=== PATIENT | female | born 1955 | race Caucasian/White ===

== ENCOUNTER 2016-07-23 10:06 | Emergency (ER) | payer BC ==
[2016-07-23 11:50] VITALS: BP 106/69
--- NOTE | 2016-07-23 12:11 | UC ---
Complaint Female HPI - HPI Summary HPI Summary: urinary burning and frequency x 1 day no fever, no chills, no flank pain + bilateral plugged ears , - History Of Current Complaint Chief Complaint: UCGU Stated Complaint: URINARY COMPLAINT Time Seen by Provider: 07/23/16 11:19 Hx Obtained From: Patient Onset/Duration: Gradual Onset, Lasting Days - 1, Still Present Timing: Constant, Lasting Days - 1 Severity Initially: Moderate Severity Currently: Moderate Character: Burning Aggravating Factor(s): Urination Alleviating Factor(s): Nothing Associated Signs And Symptoms: Negative: Negative, Fever, Back Pain, Vaginal Bleeding/Discharge, Vaginal Discharge, Nausea, Vomiting(# Of Episodes =), Genital Swelling, Genital Blisters, Retained Foregin Body (Specify) - Allergies/Home Medications Allergies/Adverse Reactions: Allergies Allergy/AdvReac Type Severity Reaction Status Date / Time CAT SCAN DYE Allergy DIZZINESS, Uncoded 07/23/16 11:30 REDNESS PMH/Surg Hx/FS Hx/Imm Hx Previously Healthy: Yes - Surgical History Surgical History: Yes Surgery Procedure, Year, and Place: BLADDER REPAIR 24 YRS AGO - Family History Known Family History: Negative: Diabetes - Social History Alcohol Use: Rare Alcohol Amount: 3-4 PER MONTH Substance Use Type: None Smoking Status (MU): Light Every Day Tobacco Smoker Amount Used/How Often: PACK Q 3 DAYS Have You Smoked in the Last Year: Yes - Immunization History Most Recent Influenza Vaccination: NONE 2015/2016 Most Recent Tetanus Shot: UTD Most Recent Pneumonia Vaccination: NONE Review of Systems Constitutional: Negative Skin: Negative Eyes: Negative Respiratory: Negative Cardiovascular: Negative Genitourinary: Dysuria, Frequency All Other Systems Reviewed And Are Negative: Yes Physical Exam Triage Information Reviewed: Yes Appearance: Well-Appearing, No Pain Distress, Well-Nourished Vital Signs: Initial Vital Signs Temp 99 F 07/23/16 11:31 Pulse 67 07/23/16 11:31 Resp 16 07/23/16 11:31 BP 106/69 07/23/16 11:31 Pulse Ox 98 07/23/16 11:31 Vital Signs Reviewed: Yes Eye Exam: Normal Eyes: Positive: Conjunctiva Clear ENT: Positive: Normal ENT inspection, Hearing grossly normal, Pharynx normal, Other: - bilateral cerumen impaction. Negative: Nasal congestion, Nasal drainage Neck exam: Normal Neck: Positive: Supple, Nontender, No Lymphadenopathy Respiratory: Positive: Chest non-tender, Lungs clear, Normal breath sounds Cardiovascular: Positive: RRR, No Murmur, Pulses Normal Abdominal Exam: Normal Abdomen Description: Positive: Nontender, Soft. Negative: CVA Tenderness (R), CVA Tenderness (L), Distended, Guarding Bowel Sounds: Positive: Present Skin Exam: Normal Complaint Female Dx - Differential Dx/Diagnosis Provider Diagnoses: uti. cerumen impaction Discharge - Discharge Plan Condition: Stable Disposition: HOME Prescriptions: Sulfamethox/Trimethoprim DS* [Bactrim DS 800/160 TAB*] 1 tab PO BID #14 tab Patient Education Materials: Urinary Tract Infection in Women (ED) Referrals: Rome Banks MD [Primary Care Provider] - 7 Days
== END 2016-07-23 12:21 | disposition home or self-care (01) ==
LOC: UCCORT 10:06
DX: Z72.0 Tobacco use (principal); N39.0 Urinary tract infection, site not specified; H61.20 Impacted cerumen, unspecified ear
CPT/HCPCS: 81003; 87086; 99213; G0463

== ENCOUNTER 2019-02-15 10:56 | Emergency (ER) | payer BC ==
[2019-02-15 11:33] VITALS: BP 132/80
--- NOTE | 2019-02-15 12:42 | UC ---
Back Pain HPI - HPI Summary HPI Summary: Pt presents with c/o low back pain that radiates across low back and is worse on right side. Pt states that she fell on 02/09/19 from standing height unto pavement. Pt states she has been taking ibuprofen every 2 hours with no improvement of pain. - History of Current Complaint Chief Complaint: UCBackPain Stated Complaint: SP FALL-BACK PAIN Time Seen by Provider: 02/15/19 11:58 Hx Obtained From: Patient ?: No Onset/Duration: Sudden Onset, Lasting Days, Still Present Timing: Constant Severity Initially: Moderate Severity Currently: Moderate Pain Intensity: 8 Back Pain: Is Discrete @ - low back, Radiates To - right hip side of back Character: Dull, Aching, Stiffness Aggravating Factor(s): Movement, Lifting, Bending, Walking Alleviating Factor(s): Rest, Position Associated Signs And Symptoms: Positive: Negative - Risk Factors AAA Risk Factors: Negative TAD Risk Factors: Negative Cauda Equina Risk Factors: Negative Epidural Abscess Risk Factors: Negative - Allergies/Home Medications Allergies/Adverse Reactions: Allergies Allergy/AdvReac Type Severity Reaction Status Date / Time CAT SCAN DYE Allergy DIZZINESS, Uncoded 02/15/19 11:29 REDNESS Home Medications: Home Medications Ibuprofen TAB* [Advil TAB*] 400 mg PO ONCE 02/15/19 [History Confirmed 02/15/19] PMH/Surg Hx/FS Hx/Imm Hx Previously Healthy: Yes - Surgical History Surgical History: Yes Surgery Procedure, Year, and Place: bladder repair - Family History Known Family History: Negative: Diabetes - Social History Occupation: Retired Lives: With Family Alcohol Use: Rare Alcohol Amount: 3-4 PER MONTH Substance Use Type: None Smoking Status (MU): Light Every Day Tobacco Smoker Amount Used/How Often: 1/3 ppd Have You Smoked in the Last Year: Yes - Immunization History Most Recent Influenza Vaccination: NONE 2015/2016 Most Recent Tetanus Shot: UTD Most Recent Pneumonia Vaccination: NONE Review of Systems All Other Systems Reviewed And Are Negative: Yes Constitutional: Positive: Negative Skin: Positive: Negative Eyes: Positive: Negative ENT: Positive: Negative Respiratory: Positive: Negative Cardiovascular: Positive: Negative Gastrointestinal: Positive: Negative Genitourinary: Positive: Negative Motor: Positive: Negative Neurovascular: Positive: Negative Musculoskeletal: Positive: Arthralgia, Decreased ROM - low back, Myalgia Neurological: Positive: Negative Psychological: Positive: Negative Is Patient Immunocompromised?: No Physical Exam Triage Information Reviewed: Yes Appearance: Pain Distress - with movement Vital Signs: Initial Vital Signs Temp 97.4 F 02/15/19 11:30 Pulse 74 02/15/19 11:30 Resp 15 02/15/19 11:30 BP 132/80 02/15/19 11:30 Pulse Ox 100 02/15/19 11:30 Vital Signs Reviewed: Yes Eye Exam: Normal ENT Exam: Normal ENT: Positive: Hearing grossly normal - slightly hard or hearing Dental Exam: Normal Neck exam: Normal Respiratory Exam: Normal Cardiovascular Exam: Normal Musculoskeletal Exam: Normal Musculoskeletal: Positive: Strength Intact, ROM Intact, No Edema Neurological Exam: Normal Psychological Exam: Normal Skin Exam: Normal Diagnostics - Radiology No standard instances Radiology Interpretation Completed By: Radiologist - negative for fracture Back Pain Course/Dx - Differential Dx/Diagnosis Differential Diagnosis/HQI/PQRI: Fracture, Herniated Disc, Strain, Sprain Provider Diagnosis: Low back pain Discharge ED - Sign-Out/Discharge Documenting (check all that apply): Patient Departure All imaging exams completed and their final reports reviewed: Yes - Discharge Plan Condition: Stable Disposition: HOME Prescriptions: Cyclobenzaprine TAB* [Flexeril 10 MG TAB*] 10 mg PO Q8H PRN #15 tab PRN Reason: Pain - Mild Patient Education Materials: Acute Low Back Pain (ED), Lower Back Exercises (ED ) Referrals: Rome Banks MD [Primary Care Provider] - 7 Days - Billing Disposition and Condition Condition: STABLE Disposition: Home
== END 2019-02-15 12:53 | disposition home or self-care (01) ==
LOC: UCCORT 10:56
DX: M54.5 Low back pain (principal); F17.210 Nicotine dependence, cigarettes, uncomplicated; Z91.09 Other allergy status, other than to drugs and biological substances
CPT/HCPCS: 72170; 99212; G0463